=== PATIENT | male | born 1960 | race Caucasian/White ===

== ENCOUNTER 2017-05-31 20:49 | Emergency (ER) | payer SELFPAY ==
[2017-05-31 20:54] VITALS: RESP 16; TEMP 97.3
--- NOTE | 2017-05-31 23:32 | PDOC ---
Gen Adult / Medical Screen HPI - General Chief Complaint: Clear for Confinement/DUI Draw Stated Complaint: CLEAR FOR CONFINEMENT Date Seen by Provider: 05/31/17 Time Seen by Provider: 20:50 Source: POSITIVE: Patient, Police Exam Limitations: POSITIVE: No limitations Nurse's Notes Reviewed & Considered: Yes - History of Present Illness Initial Comments: The patient is a 57-year-old male who is brought to the emergency department by law enforcement requesting medical clearance for incarceration. The patient was arrested and had a breathalyzer test showing a blood alcohol of 370. He does admit to drinking this evening. Because of that he was brought here for medical clearance. On arrival the patient is awake and answers questions appropriately. He states that he does not drink alcohol daily however he does have a history of prior alcohol abuse. He denies any current symptoms and states that he feels fine. He does have a history of coronary artery disease and takes several medications for this. He denies any current or recent chest pain or any other associated symptoms. - Patient Home Medications Home Medications: Home Medications NK [No Home Medications Reported] 10/15/15 - Patient Allergies Allergies/Adverse Reactions: Allergies Allergy/AdvReac Type Severity Reaction Status Date / Time No Known Allergies Allergy Verified 05/31/17 20:51 Past Medical History - heen HEENT History: Denies History Cardiovascular History: Denies History Respiratory History: Denies History Gastrointestinal History: Denies History Genitourinary History: Denies History Endocrine History: Denies History Musculoskeletal History: Denies History Prosthesis or Implant: No Neurological History: Denies History Blood Disorders: Denies History Psychiatric History: Denies History Male Reproductive History: Denies History Cancer History: Denies History In Past Year Been Physically Harmed or Verbally Threatened: No History of MDRO: No Tobacco Use: Current Every Day Smoker Alcohol Use: Rarely Substance Use Type: None Previous Surgical History: No Significant Family History: No pertinent family hx Past Medical History Reviewed: Reviewed - No Changes ROS - Limitations ROS Limitations: No Limitations Constitution: DENIES: Chills, Fever Cardiovascular: DENIES: Chest Pain Respiratory: DENIES: Shortness Of Breath Neurological: REPORTS: Denies Neuro Symptoms Gastrointestinal: REPORTS: Denies GI Symptoms. DENIES: Abdominal Pain, Vomitting Musculoskeletal: REPORTS: Denies MS Symptoms Eyes: REPORTS: Denies Symptoms ENT: REPORTS: Denies Symptoms Skin: DENIES: Rash Gen Adult/Medical Screen Exam - General Appearance General Appearance: POSITIVE: Alert, Cooperative, No Acute Distress - HEENT HEENT: POSITIVE: Head Inspection Nml, Eyes Inspection Nml, Ears Inspection Nml, Pharynx Inspect. Nml - Neck Neck: POSITIVE: Normal Inspection. NEGATIVE: Lymphadenopathy - Respiratory Respiratory: POSITIVE: No Respiratory Distress, Breath Sounds Normal - Cardiovascular Cardiovascular: POSITIVE: Regular Rate & Rhythm, No Murmur Peripheral Pulses: Dorsalis-pedis (R): 2+, Dorsalis-pedis (L): 2+ - Abdomen Abdomen: Soft: (All Quadrants), Denies Tenderness: (All Quadrants), No Distention: (All Quadrants) - Back Back: POSITIVE: Normal Inspection - Neurological / Psychological Orientation: POSITIVE: Oriented x 3 - Skin Skin: POSITIVE: Normal Color, No Rash - Extremities Extremity: Normal ROM: (All Extremities), Normal Inspection: (All Extremities) Gen Adlt/Medical Scrn Progress - Patient's Progress MDM / ED Course: The patient is intoxicated however vital signs are stable and he is awake and alert and answering questions appropriately. He is considered medically stable for release with law enforcement to the nursing home. He will return to the emergency room if any worsening or change in symptoms. He will continue his regular medications as previously prescribed. - Consult Counseled: POSITIVE: Patient, RE: DX, RE: Need for F/U Patient Care Time - Estimated PCT Patient Care Time (In Minutes): 15 Vital Signs - Recent Vital Signs Vital Signs: Vital Signs (Last 8 hours) Temp Pulse Resp BP Pulse Ox 05/31/17 20:53 97.3 F 88 16 131/87 94 05/31/17 20:49 97.3 F 88 16 131/87 94 - VS Reviewed Vital Signs Reviewed: Yes Discharge Clinical Impression: Alcohol intoxication Discharge Disposition: Discharged to Home Condition: Stable Patient Instructions Given at Discharge: Alcohol Intoxication (ED) Additional Instructions: Patient medically stable to be released to nursing home. Continue regular home medications. Return to ER if any worsening or change in symptoms. Follow Up With: NONE,NONE [Primary Care Provider] -
== END 2017-05-31 21:04 ==
LOC: ER 20:49
DX: F10.129 Alcohol abuse with intoxication, unspecified (principal)
CPT/HCPCS: 99282

== ENCOUNTER 2017-07-12 18:42 | Emergency (ER) | payer OTHER ==
[2017-07-12] MEDS ORDERED: NORMAL SALINE 10 ML SYRINGE FLUSH IVP PRN (18:58)
--- NOTE | 2017-07-12 19:01 | PDOC ---
Gen Adult / Medical Screen HPI - General Chief Complaint: General Medical Stated Complaint: BLOOD PRESSURE GOT HIGH Date Seen by Provider: 07/12/17 Time Seen by Provider: 18:59 Source: POSITIVE: Patient Exam Limitations: POSITIVE: No limitations - History of Present Illness Initial Comments: Alexis is a 57-year-old male who presents to the emergency department for evaluation of high blood pressure. Patient indicates that earlier today he had a few episodes of palpitations that lasted for about 5 minutes. Patient denies chest pain or shortness of breath but does have a history of coronary artery disease status post stenting. Patient denies any nausea or vomiting. He did have a minimal headache earlier today. Currently he is asymptomatic. - Patient Home Medications Home Medications: Home Medications Atorvastatin Calcium 1 tab PO QHS #30 tab 06/05/17 Clopidogrel Bisulfate [Clopidogrel] 1 tab PO DAILY #30 tab 06/05/17 Metoprolol Tartrate 1 tab PO BID #60 tab 06/05/17 Pantoprazole Sodium 1 tab PO DAILY #30 tab 06/05/17 - Patient Allergies Allergies/Adverse Reactions: Allergies Allergy/AdvReac Type Severity Reaction Status Date / Time No Known Allergies Allergy Verified 07/12/17 20:10 Past Medical History - heen HEENT History: Denies History Cardiovascular History: CAD Respiratory History: Denies History Gastrointestinal History: Denies History Genitourinary History: Denies History Endocrine History: Denies History Musculoskeletal History: Denies History Prosthesis or Implant: No Neurological History: Denies History Blood Disorders: Denies History Psychiatric History: Denies History Cancer History: Denies History History of MDRO: No Alcohol Use: Rarely Substance Use Type: None Previous Surgical History: No Significant Family History: No pertinent family hx Past Medical History Reviewed: Reviewed - Changes Made ROS - Limitations ROS Limitations: No Limitations Constitution: REPORTS: Denies Symptoms Cardiovascular: REPORTS: Other (Palpitations) Respiratory: REPORTS: Denies Resp Symptoms Neurological: REPORTS: Other (Mild headache status post resolved) Gastrointestinal: REPORTS: Denies GI Symptoms Endocrine: REPORTS: Denies Symptoms Musculoskeletal: REPORTS: Denies MS Symptoms Genitourinary: REPORTS: Denies Symptoms Eyes: REPORTS: Denies Symptoms ENT: REPORTS: Denies Symptoms Skin: REPORTS: Denies Skin Symptoms Psychiatric: POSITIVE: Denies Psych Symptoms Gen Adult/Medical Screen Exam - General Appearance General Appearance: POSITIVE: Alert, Cooperative, No Acute Distress, No Evidence of Trauma - HEENT HEENT: POSITIVE: Head Inspection Nml, Eyes Inspection Nml, Ears Inspection Nml, Nose Inspection Nml, Oral/Dental Inspect. Nml, Pharynx Inspect. Nml, PERRL, EOMI - Pupils Pupil Size: 3 mm: Bilateral - Neck Neck: POSITIVE: Normal Inspection - Respiratory Respiratory: POSITIVE: No Respiratory Distress, Breath Sounds Normal - Cardiovascular Cardiovascular: POSITIVE: Regular Rate & Rhythm, No Murmur, No Gallop - Abdomen Abdomen: Soft: (All Quadrants), Normal Bowel Sounds: (All Quadrants), Denies Tenderness: (All Quadrants), No Splenomegaly: (All Quadrants), No Hepatomegaly: (All Quadrants), No Guarding: (All Quadrants), No Rebound: (All Quadrants), No Palpable Pulse: (All Quadrants), No Palpabale Mass: (All Quadrants), No Distention: (All Quadrants), No Rigidity: (All Quadrants) - Back Back: POSITIVE: Normal Inspection - Neurological / Psychological Mental Status: POSITIVE: Mood Normal, Affect Normal Orientation: POSITIVE: Oriented x 3 - Skin Skin: POSITIVE: Warm, Dry, No Rash - Extremities Extremity: Non-Tender: (RLE), (LLE), Normal Inspection: (RLE), (LLE) Gen Adlt/Medical Scrn Progress - Results Reviewed by me Lab Results:: Laboratory Results 07/12/17 Range/Units 19:25 WBC 7.60 (4.8-10.8) 10^3/uL RBC 4.88 (4.70-6.10) 10^6/uL Hgb 15.1 (14.0-18.0) g/dL Hct 42.1 (42.0-52.0) % MCV 86.3 (80-90) FL MCH 30.9 (27-31) PG MCHC 35.9 (33-37) g/dL RDW Std Deviation 38.8 L (39-50) fL RDW Coeff of [place] 12.4 (11.5-14.5) % Plt Count 321 (140-350) 10*3/uL MPV 9.6 (7.4-12.2) FL Immature Gran % (Auto) 0.1 (0-5) % Neut % (Auto) 45.9 L (50-80) % Lymph % (Auto) 39.1 (10-50) % [place] % (Auto) 10.3 (5-15) % Eos % (Auto) 3.0 (0-8) % Baso % (Auto) 1.6 H (0-1) % Immature Gran # (Auto) 0.01 10*3/UL Neut # (Auto) 3.49 10*3/UL Lymph # (Auto) 2.97 10*3/uL [place] # (Auto) 0.78 (0.3-0.8) 10*3/UL Eos # (Auto) 0.23 10*3/UL Baso # (Auto) 0.12 10*3/UL WBC Morphology Comment Normal morphology (NORM) Plt Morphology Comment Normal morphology (NORM) RBC Morph Comment Normal morphology (NORM) Sodium 140 (135-145) meq/L Potassium 4.0 (3.8-5.2) meq/L Chloride 106 (98-112) meq/L Carbon Dioxide 21 L (23-33) meq/L Anion Gap 13 (5-20) BUN 15 (7-22) mg/dL Creatinine 0.8 (0.70-1.50) mg/dL Estimated GFR > 60 (>60 ml/min/1.73m(2)) BUN/Creatinine Ratio 18.75 (6-20) Glucose 98 (78-110) mg/dL Calculated Osmolality 290.0 (267-292) mOsm/kg Calcium 9.2 (8.7-10.7) mg/dL Troponin I < 0.012 (< 0.040) ng/mL - Patient's Progress MDM / ED Course: Alexis is a 57-year-old male who presents to the emergency department with palpitations in the setting of hypertension. His vital signs are notable for hypertension and examination demonstrates well-appearing male in no acute distress. Differential diagnosis includes but is not limited to ACS, arrhythmia , electrolyte abnormalities. He demonstrates sinus rhythm with a ventricular rate of 60. [place] no acute ST changes. IV was established and labs were reviewed. CBC and chemistry panel are unremarkable. Troponin was negative. This makes ACS less likely. Patient was noted to be somewhat hypertensive in the 150s over 100 here. I did have discussion with patient regarding increasing his metoprolol or following up with his primary care provider for further management of hypertension. At this time he prefers to follow-up with his primary care provider to make changes in his medications. Given his stable condition and mildly elevated blood pressure I feel this is not unreasonable. With regards to his palpitations his EKG demonstrates no evidence of arrhythmia at this time. I did discuss if his symptoms were persistent that he may need a follow-up Holter monitor for further evaluation. Patient was discharged in stable condition. Patient Care Time - Estimated PCT Patient Care Time (In Minutes): 25 Vital Signs - Recent Vital Signs Vital Signs: Vital Signs (Last 8 hours) Temp Pulse Resp BP Pulse Ox 07/12/17 18:47 97.8 F 67 16 158/108 93 - VS Reviewed Vital Signs Reviewed: Yes Discharge Clinical Impression: Palpitations, HTN (hypertension) Condition: Good Patient Instructions Given at Discharge: Palpitations (ED), Chronic Hypertension (ED) Additional Instructions: Thank you for coming to the emergency department. Your blood pressure is noted to be elevated. Your other tests appear to be normal at this time. Please follow-up with your primary care provider for further management of high blood pressure. With regards to your heart feeling funny you may need to have a Holter monitor if symptoms persist. Please follow-up with your primary care provider. Follow Up With: TRAMAINE DUFF [Primary Care Provider] -
--- NOTE | 2017-07-12 19:07 | EKG ---
[address] [address] Measurements Intervals [place] Rate: 62 P: 162 TN: 176 QRS: 183 QRSD: 81 T: 151 QT: 389 QTc: 394 Interpretive Statements SINUS RHYTHM ARM LEADS REVERSED [INVERTED P AND QRS IN I] ATYPICAL ECG [email or web address]
[2017-07-12 19:27] VITALS: RESP 16; TEMP 97.8
[2017-07-12 19:34] LABS: BASOPHILS # (AUTO) 0.12 10*3/UL; BASOPHILS % (AUTO) 1.6 % (0-1); EOSINOPHILS # (AUTO) 0.23 10*3/UL; HEMATOCRIT 42.1 % (42.0-52.0); HEMOGLOBIN 15.1 g/dL (14.0-18.0); LYMPHOCYTES # (AUTO) 2.97 10*3/uL; MEAN CORPUSCULAR HEMOGLOBIN 30.9 PG (27-31); MEAN CORPUSCULAR HGB CONC 35.9 g/dL (33-37); MEAN CORPUSCULAR VOLUME 86.3 FL (80-90); MEAN PLATELET VOLUME 9.6 FL (7.4-12.2); MONOCYTES # (AUTO) 0.78 10*3/UL (0.3-0.8); MONOCYTES % (AUTO) 10.3 % (5-15); NEUTROPHILS # (AUTO) 3.49 10*3/UL; NEUTROPHILS % (AUTO) 45.9 % (50-80); RED BLOOD COUNT 4.88 10^6/uL (4.70-6.10)
[2017-07-12 19:36] LABS: PLATELET MORPHOLOGY COMMENT NORMAL MORPHOLOGY (NORM); RBC MORPHOLOGY COMMENT NORMAL MORPHOLOGY (NORM); WBC MORPHOLOGY COMMENT NORMAL MORPHOLOGY (NORM)
[2017-07-12 19:42] LABS: BLOOD UREA NITROGEN 15 mg/dL (7-22); BUN/CREATININE RATIO 18.75 (6-20); CALCIUM 9.2 mg/dL (8.7-10.7); EST GLOMERULAR FILTRATION > 60 (>60 ml/min/1.73m(2))
== END 2017-07-12 20:10 ==
LOC: ER 18:42
DX: R00.2 Palpitations (principal); I10 Essential (primary) hypertension
CPT/HCPCS: 80048; 84484; 85025; 93005; 93010; 99283